=== PATIENT | female | born 1955 ===

== ENCOUNTER 2019-03-04 13:43 | Emergency (ER) | payer BC ==
[~2019-03-04] VITALS: Ht 160 cm; Wt 85.9 kg
[2019-03-04] MEDS ORDERED: GLUCOTROL10 M2 PO (14:37)
[2019-03-04] MEDS ORDERED: LISINOPRIL2.5 MG PO (14:37)
[2019-03-04] MEDS ORDERED: LEVO-T50 MCG PO (14:37)
[2019-03-04] MEDS ORDERED: GLUCOPHAGE PO (14:37)
[2019-03-04] MEDS ORDERED: ATENOLOL25 MG PO (14:38)
[2019-03-04] MEDS ORDERED: ATORVASTATIN CA80 MG PO (14:38)
[2019-03-04 15:44] LABS: BASO # 0.1 (0.02-0.10); EOS # 0.2 (0.04-0.40); EOS % 3.3 % (1.0-5.0); HEMATOCRIT 39.1 % (37.0-47.0); LYMPH# 1.4 (1.50-4.00); MEAN CELL VOLUME 91 fl (78-100); MEAN CORPUSCULAR HEMOGLOBIN 30 pg (27-31); MEAN CORPUSCULAR HGB CONC 33 g/dL (33-37); MEAN PLATELET VOLUME 10.6 fl (7.4-10.4); MONO # 0.5 (0.20-0.80); NEU # 3.1 (1.40-6.50); PLATELET COUNT 169 K/mm3 (130-400); RED BLOOD COUNT 4.32 M/mm3 (4.10-5.30); RED CELL DISTRIBUTION WIDTH 12.5 % (11.5-14.5); WHITE BLOOD COUNT 5.2 K/mm3 (4.8-10.8)
[2019-03-04 15:53] LABS: URINE APPEARANCE HAZY; URINE COLOR YELLOW
[2019-03-04 15:53] LABS: POTASSIUM 4.7 mmol/L (3.5-5.1)
[2019-03-04 15:54] LABS: URINE BILIRUBIN NEGATIVE (NEGATIVE); URINE BLOOD TRACE (NEGATIVE); URINE GLUCOSE NEGATIVE (NEGATIVE); URINE KETONE NEGATIVE (NEGATIVE); URINE LEUKOCYTE ESTERASE TRACE (NEGATIVE); URINE NITRATE NEGATIVE (NEGATIVE); URINE PROTEIN(semi-quant) TRACE mg/dL (NEGATIVE); URINE UROBILINOGEN NORMAL (NORMAL)
[2019-03-04 15:54] LABS: CALCIUM 8.8 mg/dL (8.3-10.5)
[2019-03-04 16:27] VITALS: BP 126/82
[2019-03-04] MEDS ORDERED: ZOFRAN ODT4 MG PO (19:20)
[2019-03-04] MEDS ORDERED: NORCO 325 MG-51 TA1 PO (19:20)
== END 2019-03-04 16:27 | disposition home or self-care (01) ==
LOC: ED 13:43
PROVIDERS: Family Medicine
DX: N30.90 Cystitis, unspecified without hematuria (principal); E03.9 Hypothyroidism, unspecified; E10.9 Type 1 diabetes mellitus without complications; Z79.84 Long term (current) use of oral hypoglycemic drugs; Z90.710 Acquired absence of both cervix and uterus

== ENCOUNTER 2019-03-04 16:44 | Emergency (ER) | payer BC ==
[~2019-03-04] VITALS: Ht 160 cm; Wt 85.9 kg
[~2019-03-04 16:44] MED LIST: ATENOLOL25 MG PO; ATORVASTATIN CA80 MG PO; GLUCOPHAGE PO; GLUCOTROL10 M2 PO; LEVO-T50 MCG PO; LISINOPRIL2.5 MG PO
[2019-03-04] MEDS ORDERED: ZOFRAN ODT4 MG PO (19:20)
[2019-03-04] MEDS ORDERED: NORCO 325 MG-51 TA1 PO (19:20)
[2019-03-04 19:55] VITALS: BP 144/57
== END 2019-03-04 19:55 | disposition home or self-care (01) ==
LOC: ED 16:44
DX: S06.0X9A Concussion with loss of consciousness of unspecified duration, initial encounter (principal); S01.91XA Laceration without foreign body of unspecified part of head, initial encounter; S16.1XXA Strain of muscle, fascia and tendon at neck level, initial encounter; I10 Essential (primary) hypertension; E11.9 Type 2 diabetes mellitus without complications; M54.9 Dorsalgia, unspecified; G89.29 Other chronic pain; N30.20 Other chronic cystitis without hematuria; Z79.84 Long term (current) use of oral hypoglycemic drugs; W01.10XA Fall on same level from slipping, tripping and stumbling with subsequent striking against unspecified object, initial encounter; Y92.129 Unspecified place in nursing home as the place of occurrence of the external cause
CPT/HCPCS: J1885

== ENCOUNTER 2019-11-16 08:00 | Outpatient (RCR) | payer BC ==
[~2019-11-16 08:00] MED LIST changes: +NORCO 325 MG-51 TA1 PO; +ZOFRAN ODT4 MG PO
== END 2019-11-16 08:30 | disposition still patient (30) ==
LOC: PT 08:00
DX: M51.36 Other intervertebral disc degeneration, lumbar region (principal)

== ENCOUNTER 2020-03-10 17:37 | Emergency (ER) | payer BC ==
[2020-03-10] MEDS ORDERED: ESTRADIOL42.5 GM VG (17:54)
[2020-03-10] MEDS ORDERED: LEVOTHYROXIN0.088 MG PO (17:55)
[2020-03-10 18:16] LABS: EOS # 0.2 (0.04-0.40); EOS % 2.7 % (1.0-5.0); HEMOGLOBIN 13.1 g/dL (12.5-16.0); MEAN CELL VOLUME 92 fl (78-100); MEAN CORPUSCULAR HEMOGLOBIN 31 pg (27-31); MEAN CORPUSCULAR HGB CONC 34 g/dL (33-37); MEAN PLATELET VOLUME 10.4 fl (7.4-10.4); MONO # 0.6 (0.20-0.80); NEU # 2.8 (1.40-6.50); PLATELET COUNT 162 K/mm3 (130-400); RED BLOOD COUNT 4.23 M/mm3 (4.10-5.30); RED CELL DISTRIBUTION WIDTH 12.5 % (11.5-14.5); WHITE BLOOD COUNT 5.6 K/mm3 (4.8-10.8)
[2020-03-10 18:24] LABS: POTASSIUM 4.5 mmol/L (3.5-5.1); SODIUM 138 mmol/L (136-145)
[2020-03-10 18:25] LABS: ALBUMIN 3.8 g/dL (3.4-4.8); CALCIUM 8.5 mg/dL (8.3-10.5)
[2020-03-10 18:27] LABS: GLUCOSE 106 mg/dL (65-105); TOTAL PROTEIN 6.8 g/dL (6.2-8.1)
[2020-03-10 18:28] LABS: CARBON DIOXIDE 22 mmol/L (23-31); TOTAL BILIRUBIN 0.3 mg/dL (0.2-1.2)
[2020-03-10 18:32] LABS: AST-SGOT 16 U/L (5-34)
[2020-03-10 18:35] LABS: ALT/SGPT 16 U/L (0-55)
[2020-03-10 18:41] LABS: TROPONIN-I < 0.03 ng/mL (<0.030)
[2020-03-10 21:45] VITALS: BP 142/87
== END 2020-03-10 21:50 | disposition home or self-care (01) ==
LOC: ED 17:37
PROVIDERS: Physician Assistant
DX: M54.9 Dorsalgia, unspecified (principal); I10 Essential (primary) hypertension; E11.9 Type 2 diabetes mellitus without complications; E78.5 Hyperlipidemia, unspecified; Z79.84 Long term (current) use of oral hypoglycemic drugs; Z79.890 Hormone replacement therapy

== ENCOUNTER → 2020-04-07 | Outpatient (CLI) | payer BC ==
[2020-03-10 21:45] VITALS: BP 142/87
[~2020-04-07] MED LIST changes: +ESTRADIOL42.5 GM VG; +LEVOTHYROXIN0.088 MG PO
== END ==
LOC: RAD 13:30
DX: N95.0 Postmenopausal bleeding (principal)

== ENCOUNTER → 2020-04-21 | Outpatient (CLI) | payer BC | LOC: LAB 09:43 | DX: Z01.812 Encounter for preprocedural laboratory examination (principal); Z20.822 Contact with and (suspected) exposure to COVID-19 ==

== ENCOUNTER → 2020-04-24 | Day surgery (SDC) | payer BC | END | disposition home or self-care (01) | LOC: MSO 07:07 | DX: Z12.11 Encounter for screening for malignant neoplasm of colon (principal); Z86.010 Personal history of colon polyps; K57.90 Diverticulosis of intestine, part unspecified, without perforation or abscess without bleeding; K21.00 Gastro-esophageal reflux disease with esophagitis, without bleeding; K44.9 Diaphragmatic hernia without obstruction or gangrene; K22.2 Esophageal obstruction; E11.9 Type 2 diabetes mellitus without complications; J45.909 Unspecified asthma, uncomplicated; I10 Essential (primary) hypertension; Z79.84 Long term (current) use of oral hypoglycemic drugs; Z79.899 Other long term (current) drug therapy | CPT/HCPCS: 00813; C1769; J2704; J7120 ==

== ENCOUNTER → 2020-06-27 | Outpatient (CLI) | payer BC | LOC: RAD 07:45 | DX: R51.9 Headache, unspecified (principal) ==

== ENCOUNTER → 2021-01-10 | Outpatient (CLI) | payer BC | LOC: LAB 11:20 | DX: R51.9 Headache, unspecified (principal) ==

== ENCOUNTER → 2021-06-02 | Outpatient (CLI) | payer BC | LOC: MAMMO 10:25 | DX: Z12.31 Encounter for screening mammogram for malignant neoplasm of breast (principal) ==

== ENCOUNTER → 2022-03-16 | Outpatient (CLI) | payer MEDICARE, BC | LOC: RAD 09:18 | DX: M48.04 Spinal stenosis, thoracic region (principal) ==